=== PATIENT | female | born 1960 | race Caucasian/White ===

== ENCOUNTER 2017-11-08 23:13 | Emergency (ER) | payer SELFPAY ==
[2017-11-09 02:15] VITALS: BP 148/95
== END 2017-11-09 02:15 | disposition home or self-care (01) ==
LOC: ED 23:13
DX: T18.128A Food in esophagus causing other injury, initial encounter (principal); X58.XXXA Exposure to other specified factors, initial encounter; Y93.89 Activity, other specified; Y92.89 Other specified places as the place of occurrence of the external cause; Y99.8 Other external cause status
CPT/HCPCS: J1610; J1885; J2405